=== PATIENT | male | born 1975 | race Caucasian/White ===

== ENCOUNTER 2020-09-02 13:45 | Outpatient (CLI) | payer OTHER, SELFPAY ==
--- NOTE | ~2020-09-02 | XR_ITS ---
EXAMINATION: XR chest 2V DATE: 09/02/2020 14:01 INDICATION: Shortness of breath. Cough. TECHNIQUE: Frontal and lateral views of the chest were obtained. COMPARISON: CT abdomen and pelvis 06/05/2019 FINDINGS: The chest demonstrates clear lungs without pneumonia, pleural effusion, or pneumothorax. Th e heart size is normal. IMPRESSION: 1. No acute cardiopulmonary disease. Reviewed, dictated and finalized at location A. PICKER
== END 2020-09-02 13:46 | disposition home or self-care (01) ==
LOC: ANHIMG 13:51
PROVIDERS: PCP Family Medicine; Visit Provider Family Medicine
DX: R05 Cough (principal); R06.02 Shortness of breath
CPT/HCPCS: 71046

== ENCOUNTER 2020-12-02 11:46 | Outpatient (CLI) | payer OTHER, SELFPAY ==
--- NOTE | ~2020-12-02 | XR_ITS ---
EXAMINATION: XR thoracic spine 2V EXAM DATE: 12/02/2020 12:25 INDICATION: M54.6 - Pain in thoracic spine. Injury, initial encounter. TECHNIQUE: Frontal and lateral projections of the thoracic spine. There is no prior study for shawn finnegan. FINDINGS: The vertebral bodies are aligned in the AP dimension. Vertebral body and disc heights are well-maintained. Mild mid and lower thoracic disc disease. There are no acute fractures identified. P araspinal soft tissue is unremarkable. IMPRESSION: Mild thoracic spondylosis. Reviewed, dictated and finalized at location B. IMPRESSION: Mild thoracic spondylosis.
--- NOTE | ~2020-12-02 | XR_ITS ---
EXAMINATION: XR_CERV2-3V_CR EXAM DATE: 12/02/2020 12:25 INDICATION: Pt fell off a deck on Saturday. Neck and back pain after fall. No surgery. TECHNIQUE: Cervical spine frontal, lateral, lateral swimmers, and open-mouth odontoid projections. There is no prior study for comparison. FINDINGS: There is mild reversal of the normal cervical lordosis which may be positional or spasm. Th ere is no evidence of acute cervical fracture. The odontoid process is intact. Pre-dens space is no rmal. Prevertebral soft tissue is normal. There are no soft tissue abnormalities identified. Verte bral body and disc heights are well-maintained. The vertebral bodies are aligned. Evidence of onl y mild cervical arthropathy without significant neural foraminal stenosis. IMPRESSION: 1. Reversal of normal cervical lordosis. 2. Mild facet arthropathy. Reviewed, dictated and finalized at location B.
--- NOTE | ~2020-12-02 | XR_ITS ---
EXAMINATION: XR lumbar spine 2-3V EXAM DATE: 12/02/2020 12:25 INDICATION: M54.5 - Low back pain . Injury, initial encounter. TECHNIQUE: Lumber spine frontal, lateral, lateral L5-S1 projections for interpretation. There is no prior study for comparison. FINDINGS: Some limitations due to quantum mottling, from body habitus. There are no acute fractures i dentified. The vertebral bodies are aligned in the AP dimension. Vertebral body and disc heights ar e well-maintained. Mild lower lumbar facet arthropathy. Paraspinal soft tissue is unremarkable. IMPRESSION: 1. Mild lower lumbar facet arthropathy. Reviewed, dictated and finalized at location B.
== END 2020-12-02 11:47 ==
PROVIDERS: PCP Family Medicine; Visit Provider Physician Assistant Medical
DX: M54.2 Cervicalgia (principal); M54.6 Pain in thoracic spine; M54.5 Low back pain; M47.816 Spondylosis without myelopathy or radiculopathy, lumbar region; M47.814 Spondylosis without myelopathy or radiculopathy, thoracic region; M53.82 Other specified dorsopathies, cervical region
CPT/HCPCS: 72040; 72070; 72100

== ENCOUNTER 2021-04-19 17:10 | Outpatient (CLI) | payer OTHER, SELFPAY ==
--- NOTE | ~2021-04-19 | US_ITS ---
EXAMINATION: US abdomen limited DATE: 04/19/2021 17:33 INDICATION: Right upper quadrant pain TECHNIQUE: Multiple grayscale and Doppler ultrasound images of the abdomen were obtained. COMPARISON: 06/05/2019 FINDINGS: Bowel gas obscures visualization of the pancreas. The visualized portions of the pancreas a re unremarkable. The liver demonstrates increased echogenicity, heterogenous echotexture, and decreas ed through transmission. No surface nodularity. Normal hepatopetal flow in the main portal vein. The gallbladder is normal with no abnormal wall thickening, pericholecystic fluid or stones. The normal c ommon bile duct measures 3 mm. There was no sonographic Bruner sign. IMPRESSION: 1. No sonographic correlate for the patient's symptoms. 2. Diffuse hepatic steatosis. Reviewed, dictated and finalized at location A.
== END 2021-04-19 17:11 | disposition home or self-care (01) ==
LOC: ANHIMG 17:13
PROVIDERS: PCP Family Medicine; Visit Provider Nurse Practitioner Family
DX: K76.0 Fatty (change of) liver, not elsewhere classified (principal)
CPT/HCPCS: 76705

== ENCOUNTER 2025-02-16 01:23 | Day surgery (SDC) | payer OTHER, SELFPAY ==
[2025-02-08 13:23] VITALS: BMI 34.4
--- OUTSIDE RECORDS SUMMARY | 2025-02-16 01:28 | XMS_ITS | Clinical Summary ---
Author Organization [facility] Care Team Providers Care Odd Job Worker Name Role Phone Unavailable Primary Care Provider Unavailabl e Social History Tobacco Use Types Packs/Day Years Used Date Smoking Tobacco: Never Assessed Sex and Gender Information Value Date Recorded Sex Assigned at Not on file Legal Sex Male 10:59 AM CANVAS BASTER Gender Identity Not on file Sexual Orientation Not on file Plan of Treatment Health Maintenance Due Date Last Done Comments Hepatitis C Virus (HCV) Screening 1973 TdaP Immunization 1973 Hepatitis B Immunization (1 of 3 - 19+ 3-dose series) 1992 Cologuard 2018 Colonoscopy 2018 Colorectal Cancer Screening 2018 Immunochemical Fecal Occult Blood 2018 Pneumococcal Immunization (5 0+ years) (1 of 1 - PCV) 10/29/2023 Zoster Immunization (1 of 2) 10/29/2023 SARS-COV-2 Immunization (1 - season) 2024 Influenza Immunization (#1) 2025 Respiratory Syncytial Virus (RSV) Immunization (Adult) (1 - 1-dose 75+ series) 2048 Human Papillomavirus (HPV) Immunization Aged Out No longer eligible b ased on patient's age to complete this topic Meningococcal Immunization (ACWY) Aged Out No longer eligible based on patient's age to complete this topic Rotavirus Immunization Aged Out No lo nger eligible based on patient's age to complete this topic
--- OUTSIDE RECORDS SUMMARY | 2025-02-16 01:28 | XMS_ITS | Clinical Summary ---
Author Organization [facility] [address] [place] [id number] Care Team Providers Care Airport Sales Agent Name Role Phone Jovon George MD Primary Care Provider [phone] Allergies Active Allergy Reactions Criticality Noted Date Comments Iodine Anaphylaxis High 08/14/2018 Other Anaphylaxis High 06/13/2017 All seafood Prochlorperazine Agitation Low Shellfish Derived Anaphylaxis High 11/24/2021 Seafood allergy Shrimp Anaphylaxis High 06/13/2017 Sulfa (Sulfonamide Antibiotics) Other (See comments) Low 06/13/2017 States this medication because he is allergic to seafood Medications CIALIS 20 mg tablet Take 1 tablet (20 mg total) by mouth as needed 7 Active zolpidem (AMBIEN) 10 mg tabletIndicatio ns:Sleep-Onset Insomnia Take 1 tablet (10 mg total) by mouth nightly 7 Active albuterol HFA (PROVENTIL HFA,VENTOLIN HFA,PROAIR HFA) 90 mcg/actuation inhaler 1 Active rOPINIRole (REQUIP) 1 mg tablet 1 Active rOPINIRole (REQUIP) 2 mg tablet 1 Active testosterone cypionate (DEPO-TESTOTERO NE) 200 mg/mL injection 1 Active HYDROcodone-kaveh taminophen (NORCO) 5-325 mg per tabletIndicatio ns:Pain Take 1 tablet by mouth every 4 (four) hours as needed for pain 30 tablet 4 Active sildenafiL (VIAGRA) 100 mg tablet 5 Active cyclobenzaprine (FLEXERIL) 10 mg tablet Take 1 tablet (10 mg total) by mouth daily 5 Active Emgality Pen 120 mg/mL pen injector INJECT 120 MG UNDER THE SKIN MONTHY 5 Active ketorolac (TORADOL) 10 mg tablet TAKE 1 TABLET BY MOUTH EVERY 6 HOURS UP TO 5 DAYS NEEDED FOR HEADACHE 5 Active Mounjaro 15 mg/0.5 mL pen injector injection ADMINISTER 15 MG UNDER THE SKIN WEEKLY 5 Active predniSONE 5 mg tablet,delayed release (DR/EC) Take by mouth daily UNKNOWN STRENGTH, PRN FOR HEADACHES Active Hospital, Clinic, or Other Facility Administered Medication Ordered Dose Route Frequency Start Date End Date Status perflutren protein-a (OPTISON) 3 mL in sodium chloride 0.9% 8 mL syringe 1 - 8 mL IV Once in imaging 08/18/2024 Active Active Problems Problem Noted Date Diagnosed Date Open nondisplaced fracture o f distal phalanx of left great toe with routine healing 06/17/2024 Extensor carpi ulnaris tendinitis 07/04/2021 Assessment & Plan (07/04/2021 10:24 AM DRYING MACHINE OPERATOR PACKAGE YARNS): Patient has a strain of the extensor carpi ulnaris. There is no acute fractures although his injury is many months old it is possible that his punch fracture of the radius is healed. Was prescribed a wrist control splint and advised be taking topical rubs. If his pain and swelling to the not improve other treatments would be indicated Stress fracture of right tibia 07/04/2021 Assessment & Plan (07/04/2021 10:25 AM DRYING MACHINE OPERATOR PACKAGE YARNS): Patient is having persistent pain in the leg with any weight-bearing activities. Prolonged standing or walking exacerbates his issues and it is concerning for a stress fracture of the tibia. His x-rays reveal thickened cortices which would be expected and active male who stands and walks all day however it also could be seen in individuals with a stress fracture. Would recommend he reduce amount of standing walking is performing and an MRI would be helpful to rule out a stress fracture and direct his treatment better. TFCC (triangular fibrocartil age complex) injury, left, initial encounter 06/15/2021 Assessment & Plan (06/15/2021 3:29 PM DRYING MACHINE OPERATOR PACKAGE YARNS): Patient likely has a tear of the triangle fibrocartilage and disruption of the ulnar collateral ligamentous complex. He likely has other ligamentous disruption in the hand as well as possible partial tears of the tendons although do not detect any defects in the tendons I would recommend an MRI of the wrist to assess the ligaments Closed punch fracture of distal radius, left, initial encounter 06/15/2021 Assessment & Plan (06/15/2021 3:28 PM DRYING MACHINE OPERATOR PACKAGE YARNS): Patient has a minimally displaced punch lesion of the distal radius. He should avoid heavy lifting pushing or pulling. Would encourage her work on stretching exercises. Would not be uncommon with this lesion to have ligamentous and disruptions in the wrist Hematoma of right lower leg 03/02/2021 Assessment & Plan (04/13/2021 12:33 PM CDT): Patient has a mild contact dermatitis. He may find hydrocodone cream helpful. He should be intermittently elevating his leg continue with the support hose. Christina was called in again for him. Assessment & Plan (03/02/2021 8:52 AM CDT): Patient has a sizable hematoma in the lower leg from the knee to the ankle. There is no evidence of a fracture. I am concerned because he has calf pain that he could have a deep vein thrombosis in a Doppler ultrasound was ordered. Otherwise he has keep the leg elevated perform foot ankle pumps to help reduce the swelling. He may find a compressive sleeve or support hose helpful as well. If he develops progressive numbness or weakness in the leg could potentially require fasciotomies Acute medial meniscal tear, right, subsequent en counter 05/27/2017 Assessment & Plan (05/27/2017 12:24 PM DRYING MACHINE OPERATOR PACKAGE YARNS): Patient workup being MRI was found have a medial meniscal tear. This is off seeing like to proceed with definitive treatment. I would recommend arthroscopic partial meniscectomy. Was advised he has underlying arthritis and if significant may have symptoms persist. The risks of knee arthroscopy include incisional numbness, hypersensitive scar, neurovascular compromise, infection, recurrent tearing, persistent pain due to underlying arthritis, medical and anesthetic risks including and is willing to proceed Right rotator cuff tendinitis 05/27/2017 Assessment & Plan (05/27/2017 12:24 PM DRYING MACHINE OPERATOR PACKAGE YARNS): Patient would like to have a cortisone injection of the time of his knee surgery while under anesthesia. Rotator cuff tendinitis, left 05/27/2017 Assessment & Plan (05/27/2017 12:25 PM DRYING MACHINE OPERATOR PACKAGE YARNS): Patient responded to a previous injection wanted to have a follow-up one at the time of his surgery. He may require some physical therapy for ongoing cuff tendinitis if he has persistent symptoms following his surgery Acute medial meniscal tear, right, initial encou nter 05/09/2017 Assessment & Plan (05/09/2017 10:53 AM DRYING MACHINE OPERATOR PACKAGE YARNS): Patient has had recurring locking since an acute injury and exam consistent with a medial meniscal tear. Would recommend MRI to evaluate the integrity of the meniscus initiate appropriate treatment. The patient should avoid any heavy lifting or rigorous activities with the leg in the meantime Inflammation of rotator cuff tendon 06/07/2016 Overview (10/05/2016): Tendinitis of both rotator cuffs Hypogonadism male 07/27/2014 Surgical History Surgery Date Site/Laterality Comments SKIN GRAFT left thigh and left elbow Medical History Medical History Date Comments Meniscal injury Pain in shoulder bilateral Family History Medical History Relation Name Comments Heart attack Father Heart disease Father Relation Name Status Comments Father Social History Tobacco Use Types Packs/Day Years Used Date Smoking Tobacco: Never Smokeless Tobacco: Never Alcohol Use Standard Drinks/Week Comments No 0 (1 standard drink = 0.6 oz pur e alcohol) Sex and Gender Information Value Date Recorded Sex Assigned at Not on file Legal Sex Male 4:19 AM DRYING MACHINE OPERATOR PACKAGE YARNS Gender Identity Not on file Sexual Orientation Not on file Obstetrics History Last Filed Vital Signs Vital Sign Reading Time Taken Comments Blood Pressure 118/74 08/18/2024 9:39 AM DRYING MACHINE OPERATOR PACKAGE YARNS Pulse 86 08/18/2024 9:33 AM DRYING MACHINE OPERATOR PACKAGE YARNS Temperature 37.2 C (98.9 F) 06/14/2017 12:40 PM DRYING MACHINE OPERATOR PACKAGE YARNS Respiratory Rate 26 06/14/2017 1:30 PM DRYING MACHINE OPERATOR PACKAGE YARNS Oxygen Saturation 97% 08/18/2024 9:33 AM DRYING MACHINE OPERATOR PACKAGE YARNS Inhaled Oxygen Concentration - - Weight 106.1 kg (234 lb) 08/18/2024 9:33 AM DRYING MACHINE OPERATOR PACKAGE YARNS Height 177.8 cm (5' 10) 08/18/2024 9:33 AM DRYING MACHINE OPERATOR PACKAGE YARNS Body Mass Index 33.58 08/18/2024 9:33 AM DRYING MACHINE OPERATOR PACKAGE YARNS Plan of Treatment Health Maintenance Due Date Last Done Comments Colon Cancer Screening-Colonoscopy 1973 Depression Screening 1973 Hepatitis C Screening 1973 Prostate Cancer Screening-PSA 1973 DTaP/Tdap/Td Vaccine (1 - Tdap) 1984 Hepatitis B Screening 10/29/1991 Regular Well Visit/Exam 18-64 10/29/1991 Zoster Vaccine (1 of 2) 10/29/2023 Influenza Vaccine (#1) 2025 Pneumococcal vaccine <65 Aged Out No longer eligible based on patient's age to complete this topic Insurance [facility] Address: [facility] [address] [place] [address] [facility] Address: [address] [place] [id number] [facility] Address: [address] [place] [id number] [facility] Address: [address] [place] [id number] [facility]/PPO Address: [place] [id number] Care Teams Airport Sales Agent Relationship Specialty Start Date End Date Jovon George MD PCP - General 06/07/16
--- OUTSIDE RECORDS SUMMARY | 2025-02-16 01:28 | XMS_ITS | Clinical Summary ---
Author Organization [facility] Address [address] [address] Care Team Providers Care Livestock Slaughterer Name Role Phone Jovon George MD Primary Care Provider [phone] Source Comments [facility],non-owned Affiliates and Associated Physician Practices is amultiple site organization consisting of ambulatory clinics and hospital sitesin [place], [place], [place] and [place]. This disclosure is being madepursuant to the Care Everywhere program and may not contain all information available regarding this patient. Last updated 18.[facility] Allergies Active Allergy Reactions Criticality Noted Date Comments Prochlorperazine 07/23/2014 Medications * Be aware that medications may not be up to date on this document. Alwaysverify current medications with the patient. ketorolac (TORADOL) 10 MG tablet Take 10 mg by mouth every 4 hours as needed for Pain. Active cyclobenzaprine (FLEXERIL) 10 MG tablet Take 10 mg by mouth 3 times daily as needed for Muscle Spasms. Active PREDNISONE PO Take 20 mg by mouth as needed. Active Fexofenadine HCl (LUCILLE PO) Take by mouth as needed. Active testosterone cypionate (DEPO-TESTOTERO NE) 200 MG/ML injection Inject 1 mL into muscle every 7 days. 1/2 cc IM weekly Include 3cc syringes with 21 gauge needle Disp #20 10 mL 1 07/23/2014 Active vardenafil (LEVITRA) 20 MG tablet Take 1 Tab by mouth once as needed for up to 1 dose. 6 Tab 5 07/23/2014 Active Active Problems Problem Noted Date Diagnosed Date Hypogonadism male 07/27/2014 Resolved Problems Problem Noted Date Diagnosed Date Resolved Date Hx of polycythemia 07/27/2014 5 Social History Tobacco Use Types Packs/Day Years Used Date Smoking Tobacco: Never Assessed Sex and Gender Information Value Date Recorded Sex Assigned at Not on file Legal Sex Male 8:56 AM ENGAGEMENT DIRECTOR Gender Identity Not on file Sexual Orientation Not on file Last Filed Vital Signs Vital Sign Reading Time Taken Comments Blood Pressure 120/80 07/23/2014 10:11 AM ENGAGEMENT DIRECTOR Pulse - - Temperature - - Respiratory Rate - - Oxygen Saturation - - Inhaled Oxygen Concentration - - Weight 122.9 kg (271 lb) 07/23/2014 10:11 AM ENGAGEMENT DIRECTOR Height - - Body Mass Index - - Plan of Treatment Health Maintenance Due Date Last Done Comments COLOGUARD (AGES 45-75) - COL ON CA SCREENING 1973 COLON MONITORING 1973 COLONOSCOPY - COLON CA SCREENING 1973 CT COLONOGRAPHY - COLON CA SCREENING 1973 Colorectal Cancer Screening 1973 FIT - COLON CA SCREENING 1973 FLEX SIG - COLON CA SCREENING 1973 LIPID TESTING 1973 HIV SCREENING 1988 HEPATITIS C SCREENING 10/24/1991 DTAP/TDAP/TD VACCINES (1 - Tdap) 1992 HEPATITIS B VACCINE (1 of 3 - 19+ 3-dose series) 1992 PNEUMOCOCCAL VACCINE 50+ (1 of 1 - PCV) 10/29/2023 ZOSTER VACCINE (1 of 2) 10/29/2023 COVID-19 VACCINE (1 - 2023-2 5 season) 2024 DEPRESSION SCREENING 07/01/2024 INFLUENZA VACCINE (#1) 2025 HIB VACCINE Aged Out No longer eligi ble based on patient's age to complete this topic HPV VACCINE Aged Out No longer eligi ble based on patient's age to complete this topic MENINGOCOCCAL (Group B) VACC INE SHARED DECISION-MAKING Aged Out No longer eligibl e based on patient's age to complete this topic MENINGOCOCCAL GROUPS A/C/Y/W VACCINE Aged Out No longer eligible b ased on patient's age to complete this topic Insurance [employer] Care Teams Livestock Slaughterer Relationship Specialty Start Date End Date Jovon George MD PCP - General Family Medicine 07/23/14
--- OUTSIDE RECORDS SUMMARY | 2025-02-16 01:28 | XMS_ITS | Clinical Summary ---
Author Organization [facility] Address [address] [place] [address] Care Team Providers Care Floor Associate Name Role Phone Jovon George MD Primary Care Provider Allergies Active Allergy Reactions Criticality Noted Date Comments Shellfish-Derived Products Anaphylaxis High 11/25/19 22 Seafood allergy Medications zolpidem 10 MG tablet Take 10 mg by mouth nightly at bedtime. 2 9 Active cyclobenzaprine 10 MG tablet Take 10 mg by mouth daily as needed (HEADACHES). 9 Active testosterone cypionate 200 MG/ML injection Inject 200 mg into the muscle weekly. INJECT ON Saturday 9 Active ketorolac 10 MG tablet Take 10 mg by mouth every 6 (six) hours as needed for Headaches. 9 Active hydrocodone-kaveh taminophen 5-325 MG tablet Take 1 tablet by mouth every 6 (six) hours as needed for Pain. 0 9 Active CIALIS 20 MG tablet Take 20 mg by mouth daily as needed for Erectile Dysfunction. 8 Active Social History Tobacco Use Types Packs/Day Years Used Date Smoking Tobacco: Never Smokeless Tobacco: Never Alcohol Use Standard Drinks/Week Comments No 0 (1 standard drink = 0.6 oz pur e alcohol) AUDIT-C Answer Date Recorded Frequency of Alcohol Consumption Never 08/14/2018 Average Number of Drinks Not on file 019 Frequency of Binge Drinking Not on file 08/01 Sex and Gender Information Value Date Recorded Sex Assigned at Not on file Legal Sex Male 8:22 PM CDT Gender Identity Not on file Sexual Orientation Not on file Last Filed Vital Signs Vital Sign Reading Time Taken Comments Blood Pressure 127/71 11/24/2021 3:00 AM CDT Pulse 64 11/24/2021 3:00 AM CDT Temperature 37 C (98.6 F) 11/24/2021 1:19 AM CDT Respiratory Rate 22 11/24/2021 3:00 AM CDT Oxygen Saturation 96% 11/24/2021 3:00 AM CDT Inhaled Oxygen Concentration - - Weight 127.5 kg (281 lb) 11/23/2021 11:44 PM CDT Height 180.3 cm (5' 11) 11/23/2021 11:44 PM CDT Body Mass Index 39.19 11/23/2021 11:44 PM CDT Plan of Treatment Health Maintenance Due Date Last Done Comments Colorectal Cancer Screening Colonoscopy (10 Years) 1973 Annual Physical 1976 Hepatitis C 10/29/1991 DTaP, Tdap and Td Vaccines ( 1 - Tdap) 1992 Hepatitis B Vaccines (1 of 3 - 19+ 3-dose series) 1992 Pneumococcal Vaccine: 50+ Ye ars (1 of 1 - PCV) 10/29/2023 Zoster Vaccines (1 of 2) 10/29/2023 COVID-19 Vaccine (1 - 2023-2 5 season) 2024 Meningococcal B Vaccine Aged Out No l onger eligible based on patient's age to complete this topic Meningococcal Vaccine Aged Out No benitez aram eligible based on patient's age to complete this topic RSV Immunizations Under 20 Months Aged Out No longer eligible based on patient's age to complete this topic Insurance [place] [address] Care Teams Floor Associate Relationship Specialty Start Date End Date Jovon George MD [address] [place] [address] PCP - General FAMILY PRACTICE 11/24/21
--- OUTSIDE RECORDS SUMMARY | 2025-02-16 01:28 | XMS_ITS | Continuity of Care Document ---
Author Organization [facility] Address [address] [place] [address] Phone Care Team Providers Care Relay Tester Name Role Phone Sandy Kamara Unavailable Unavailable Advance Directives Directive Yes / No Effective Date File Name No Information Encounters Encounter Description Practice Location Reason(s) For Visit Diagnoses Date Provider Providers Copied on Encounter [facility], [address], [place], [place], [id number], [place] tel:[phone] [facility] No Information [phone] Delgado. [address] , [address], [place], [address], [place]. tel:[phone] Family History Family Member Type Diagnosis Age At Onset No Information Payers Payer name Insurance type Covered republican ID Authoriza tion(s) No Information Social History Type Description Quantity Date Captured Comments Sex Male Smoking Status No Information Chief Complaint And Reason For Visit No Information Reason For Referral Reason For Referral No Information History Of Present Illness Encounter Date Complaint History Of Prese nt Illness No Information Functional Status Date Functional Assessmen t No Information Instructions Date Instruction Additional Infor mation No Information Assessments Type Assessment Date No Information Patient Care Teams Name Effective Dates (start - stop) Status Members No Information
[2025-02-16 07:08] VITALS: BP 111/75; PULSE 78; RESP 18; TEMP 36.1; O2SAT 99
[2025-02-16] MEDS: LACTATED RINGERS 1,000 ML 150 ML IV CONT (07:18)
--- NOTE | 2025-02-16 07:25 | P.PNAN_ITS ---
Anes - Initial Pre Proc Eval Procedure: Operation Date: 02/16/25 08:00 Proposed Procedures p Screening Colonoscopy - Los Marsh DO Date/Time: 02/16/25 07:25 Surgeon: Los Marsh DO Pre Op Diagnosis: Neoplasm screening Patient Data Age: 49 Gender: M Height: 1.78 m Weight: 107.8 kg Last Vital Signs Temp 36.1 C L 02/16/25 07:08 Pulse 78 02/16/25 07:08 Resp 18 02/16/25 07:08 BP 111/75 02/16/25 07:08 Pulse Ox 99 02/16/25 07:08 O2 Del Method Room Air 02/16/25 07:08 Allergies Allergy/AdvReac Type Severity Reaction Status Date / Time shellfish derived Allergy Severe Difficulty Verified 02/16/25 07:00 Swallowing prochlorperazine (From Allergy Unknown Unknown Verified 02/16/25 07:00 Compazine) Home Medications ?Medication ?Instructions ?Recorded ?Confirmed ?Type rimegepant 75 mg disintegrating 75 mg PO ONCE PRN migr stephany 05/05/24 02/08/25 Rx tablet (Nurtec ODT) headache #10 tabs cyclobenzaprine 10 mg tablet 10 mg PO DAILY #30 tabs 0 07/30/24 02/16/25 Rx galcanezumab-gnlm 120 mg/mL 120 mg subcut MONTHLY #1 m L 07/30/24 02/08/25 Rx subcutaneous pen injector (Emgality Pen) ketorolac 10 mg tablet 10 mg PO Q6H PRN headaches # 45 tabs 07/30/24 02/08/25 Rx needle (disp) 16 G 16 gauge x 1 #100 ea 07/30/2401/29 Rx (BD Specialty Use [place]) testosterone cypionate 200 mg/mL 200 mg IM WEEKLY #10 mL 09/22/24 02/16/25 Rx intramuscular oil ropinirole 2 mg tablet 2 mg PO QHS #90 tabs 2 5 02/16/25 Rx sildenafil 100 mg tablet (Viagra) 100 mg PO DAILY PRN sexual 12/15/24 02/08/25 Rx activity #30 tabs tirzepatide 15 mg/0.5 mL 15 mg (0.5 mL) subcut WEEKLY #2 mL 12/15/24 02/16/25 Rx subcutaneous pen injector (Sukumarunzoë) hydrocodone 5 mg-acetaminophen 325 1 tablet PO Q6H PRN pain #45 tabs 12/22/24 02/08/25 Rx mg tablet prednisone 10 mg tablet 10 mg PO DAILY PRN Migraine 12/22/24 02/08/25 Rx headaches #15 tabs zolpidem 12.5 mg tablet,extended 12.5 mg PO QHS PRN in somnia #30 12/30/24 02/08/25 Rx release,multiphase (Ambien CR) tabs sodium sul 1.479 gram-potas ch See Rx Instructions PO .COMPLEX 02/09/25 Rx 0.188 gram-magnes sul 0.225 gram #24 tabs tablet (Sutab) Patient hx anesthesia problems: none Family hx anesthesia problems: none Results Review: All pre-operative results and documents have been reviewed as part of the pre- operative evaluation. FOR[facility], [facility] Past Medical History Medical History (Updated 02/15/25 @ 08:55 by Riley Saha, ) Diabetes type 2, controlled TANVI on CPAP Epididymitis Prediabetes BMI 35.0-35.9,adult BMI 38.0-38.9,adult Headache Otitis media Right upper quadrant pain Restless legs syndrome BMI greater than 40 Back pain due to injury Neck pain Cough Shortness of breath Chest discomfort Morbid obesity Insomnia Umbilical hernia Low testosterone Chronic nonintractable headache Family History Family History Father Hypertension Family history of coronary artery disease Acute myocardial infarction Grandparent Family history of malignant neoplasm of brain Diabetes mellitus Mother No problems noted. 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 Informed Consent: The patient's anesthetic plan and its attendant risks and benefits were discussed with the patient/family/POA. Questions were solicited and answers provided to the satisfaction of the patient/family/POA.
--- NOTE | 2025-02-16 07:48 | PM.IMHP ---
H&P: HPI History of Present Illness Date/Time: 02/16/25 07:48 Chief Complaint: screening for colorectal cancer Narrative: this is a 49-year-old man who presents for colonoscopy. He has never had a colonoscopy before. He denies any hematochezia or melena. He denies any family history colon cancer. Review of Systems Review of Systems: All systems reviewed & are unremarkable except as noted in HPI and below Constitutional: Constitutional: Denies chills, Denies fever(s), Denies headache(s) and Denies weight loss Eyes: Eyes: Denies change in vision ENT: Denies dizziness, Denies headache(s), Denies neck mass and Denies throat swelling Cardiovascular: Cardiovascular: Denies chest pain, Denies lightheadedness and Denies dyspnea Respiratory: Respiratory: Denies cough, Denies dyspnea and Denies wheezing Gastrointestinal: Gastrointestinal: Denies abdominal pain, Denies change in bowel habits, Denies nausea and Denies vomiting Genitourinary: Genitourinary: Denies hematuria and Denies dysuria Musculoskeletal: Musculoskeletal: Reports as per HPI Integumentary/Breasts: Skin/Breast: Reports as per HPI Neurologic: Denies dizziness and Denies headache(s) Allergic/Immunologic: Allergic/Immunologic: Denies throat swelling and Denies wheezing COUNTS INCLUDE 234 BEDS AT THE [facility] Past Medical History Medical History (Updated 02/15/25 @ 08:55 by Riley Saha DO) Diabetes type 2, controlled TANVI on CPAP Epididymitis Prediabetes BMI 35.0-35.9,adult BMI 38.0-38.9,adult Headache Otitis media Right upper quadrant pain Restless legs syndrome BMI greater than 40 Back pain due to injury Neck pain Cough Shortness of breath Chest discomfort Morbid obesity Insomnia Umbilical hernia Low testosterone Chronic nonintractable headache Family History Family History Father Hypertension Family history of coronary artery disease Acute myocardial infarction Grandparent Family history of malignant neoplasm of brain Diabetes mellitus Mother No problems noted. 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 Gender identity (if verbalized by the patient): Male Spiritual care concerns: No Meds Home Medications and Allergies Home Medications ?Medication ?Instructions ?Recorded ?Confirmed ?Type rimegepant 75 mg disintegrating 75 mg PO ONCE PRN migraine 05/05/24 02/08/25 Rx tablet (Nurtec ODT) headache #10 tabs cyclobenzaprine 10 mg tablet 10 mg PO DAILY #30 tabs 07/30/24 02/16/25 Rx galcanezumab-gnlm 120 mg/mL 120 mg subcut MONTHLY #1 mL 07/30/24 02/08/25 Rx subcutaneous pen injector (Emgality Pen) ketorolac 10 mg tablet 10 mg PO Q6H PRN headaches #45 tabs 07/30/24 02/08/25 Rx needle (disp) 16 G 16 gauge x 1 #100 ea 07/30/24 02/08/25 Rx (BD Specialty Use [place]) testosterone cypionate 200 mg/mL 200 mg IM WEEKLY #10 mL 09/22/24 02/16/25 Rx intramuscular oil ropinirole 2 mg tablet 2 mg PO QHS #90 tabs 12/15/24 02/16/25 Rx sildenafil 100 mg tablet (Viagra) 100 mg PO DAILY PRN sexual 12/15/24 02/08/25 Rx activity #30 tabs tirzepatide 15 mg/0.5 mL 15 mg (0.5 mL) subcut WEEKLY #2 mL 12/15/24 02/16/25 Rx subcutaneous pen injector (Mounjaro) hydrocodone 5 mg-acetaminophen 325 1 tablet PO Q6H PRN pain #45 tabs 12/22/24 02/08/25 Rx mg tablet prednisone 10 mg tablet 10 mg PO DAILY PRN Migraine 12/22/24 02/08/25 Rx headaches #15 tabs zolpidem 12.5 mg tablet,extended 12.5 mg PO QHS PRN insomnia #30 12/30/24 02/08/25 Rx release,multiphase (Ambien CR) tabs sodium sul 1.479 gram-potas ch See Rx Instructions PO .COMPLEX 02/09/25 Rx 0.188 gram-magnes sul 0.225 gram #24 tabs tablet (Sutab) Allergies Allergy/AdvReac Type Severity Reaction Status Date / Time shellfish derived Allergy Severe Difficulty Verified 02/16/25 07:00 Swallowing prochlorperazine (From Allergy Unknown Unknown Verified 02/16/25 07:00 Compazine) Vital Signs Vital Signs - 24 hr 02/16/25 07:08 Temperature 97 F L Pulse Rate 78 Respiratory Rate 18 Blood Pressure 111/75 Pulse Oximetry 99 Oxygen Delivery Room Air Exam Const: General: no acute distress and alert Orientation/consciousness: patient oriented x3 HENMT: Head: normocephalic and atraumatic Ears: hearing grossly normal bilaterally Face/Nose/Sinus: Normal nares present Mouth: Yes Normal oral and palatal mucosa present Eyes: Periorbital: periorbital findings normal Sclera: sclerae normal EOM: EOMs intact bilaterally Neck: Neck: normal visual inspection, no lymphadenopathy and trachea midline Chest: Chest palpation & inspection: normal inspection of the chest Resp: Effort & Inspection: normal respiratory effort Auscultation: clear to auscultation bilaterally Cardio: Jugular venous distension: no JVD Rate: regular rate Rhythm: regular rhythm Heart sounds: S1 normal heart sound present and S2 normal heart sound present Peripheral pulses: Peripheral pulses 2+ throughout GI: Inspection: normal to inspection GI Palp: Yes Soft to palpation, No Tenderness to palpation present (GI), No Guarding due to palpation present (GI) and No Rebound tenderness present Percussion: Yes normal to percussion Auscultation: normal bowel sounds : General: Yes no CVA tenderness Back/Spine/Pelvis: Back: no CVA tenderness Neuro: General: patient oriented x3, no focal motor deficits and CN's II-XI intact bilaterally Cognition (Neuro): normal cognition Speech: normal speech Motor exam (neuro): 5/5 motor strength present throughout Extrem: General: capillary refill normal and no clubbing, cyanosis or edema Assessment and Plan Assessment and plan (1) Screen for colon cancer: Code(s): Z12.11 - Encounter for screening for malignant neoplasm of colon Status: Acute Assessment and Plan: I have recommended colonoscopy. I have discussed the procedure, risks, benefits, and alternatives. Questions were answered. Patient is agreeable to proceed.
[2025-02-16 08:14] VITALS: BP 108/70; PULSE 84; RESP 20; O2SAT 99
[2025-02-16 08:24] VITALS: BP 111/70; PULSE 85; RESP 24; O2SAT 99
[2025-02-16 08:34] VITALS: BP 110/79; PULSE 75; RESP 16; O2SAT 99
== END 2025-02-16 08:46 | disposition home or self-care (01) ==
PROVIDERS: PCP Family Medicine; Visit Provider Surgery
PROC: 0DJD8ZZ Inspection of Lower Intestinal Tract, Via Natural or Artificial Opening Endoscopic (ICD-10-PCS; CPT 45378; principal; 2025-02-16 08:00)
DX: Z12.11 Encounter for screening for malignant neoplasm of colon (principal); K57.30 Diverticulosis of large intestine without perforation or abscess without bleeding; E11.9 Type 2 diabetes mellitus without complications; G47.33 Obstructive sleep apnea (adult) (pediatric); G25.81 Restless legs syndrome; G47.00 Insomnia, unspecified; E29.1 Testicular hypofunction; R51.9 Headache, unspecified; E66.9 Obesity, unspecified; Z68.34 Body mass index [BMI] 34.0-34.9, adult; Z79.85 Long-term (current) use of injectable non-insulin antidiabetic drugs; Z79.891 Long term (current) use of opiate analgesic; Z79.52 Long term (current) use of systemic steroids; Z99.89 Dependence on other enabling machines and devices; Z80.8 Family history of malignant neoplasm of other organs or systems; Z82.49 Family history of ischemic heart disease and other diseases of the circulatory system
CPT/HCPCS: 45378; 82948; J2003; J2704; J7120